=== PATIENT | female | born 1960 | race Caucasian/White ===

== ENCOUNTER 2017-06-29 21:19 | Emergency (ER) | payer BC, OTHER ==
[~2017-06-29] VITALS: Ht 175.3 cm; Wt 61.2 kg
--- NOTE | 2017-06-29 22:04 | ED EENT ---
History of Present Illness General Chief Complaint: Eye Problems Stated Complaint: RT EYE REDNESS/PAIN Nursing Triage Note: PT AMBULATED TO ROOM. PT STATES SHE WOKE UP THIS MORNING AND NOTICED WHAT SEEMS LIKE A PUSS POCKET IN HER RIGHT EYE. PT STATES SHE HAS BEEN HAVING PAIN AND HER VISION HAS BEEN A LITTLE CLOUDY OFF AND ON TODAY. PT PUT VISINE IN HER EYE TODAY AND STATES IT "BURNED LIKE HELL" WHEN THAT HAPPENED. Source: patient Exam Limitations: no limitations History of Present Illness Time seen by provider: 21:57 Initial Comments Patient presents to ER with chief complaint of just this morning waking up with redness in her eye and no foreign body sensation but she does feel irritation and pain. She has a pimple on the lateral side of her eyeball. She's had no significant discharge with just some mattering throughout the day. No seasonal allergies, injury, runny nose, ear pain, difficulty hearing, tinnitus, dizziness. Allergies and Home Medications Allergies Coded Allergies: Sulfa (Sulfonamide Antibiotics) (Verified Allergy, Unknown, 06/29/17) Review of Systems Constitutional: No chills, No diaphoresis, No fever, No malaise Eyes: Denies Blindness, Denies Blurred Vision, Drainage (scant amount of mattering) Ears: Denies Pain Throat: denies pain, denies swelling Respiratory: No cough, No short of breath Cardiovascular: No chest pain, No palpitations Musculoskeletal: No muscle stiffness, No neck pain Skin: No pruritus, No rash Neurological: Denies Headache, Denies Numbness, Denies Paresthesia Past Blloooo-Khwjvm-Thowaw Hx Patient Social History Alcohol Use: Denies Use Recreational Drug Use: No Smoking Status: Never a Smoker 2nd Hand Smoke Exposure: No Recent Foreign Travel: No Contact w/Someone Who Travel: No Recent Infectious Disease Expo: No Recent Hopitalizations: No Seasonal Allergies Seasonal Allergies: No Visual Acuity : Eye Location: Bilaterally Vision Acuity Degree: 20/15 Physical Exam Vital Signs Vital Sign - Last 12Hours 06/29/17 21:38 Temp 97.3 Pulse 81 Resp 20 B/P (MAP) 126/74 Pulse Ox 95 O2 Delivery Room Air General Appearance: WD/WN, no apparent distress Eyes: right eye other (conjunctiva and lateral sclera are erythematous with a small vesicle that under Wood's lamp examination does not have dendritic extensions.), left eye normal inspection, bilateral eye EOMI, bilateral eye PERRL Ears: bilateral ear TM normal, bilateral ear auricle normal, bilateral ear canal normal Nose: normal inspection, No active bleeding Mouth/Throat: normal mouth inspection, pharynx normal Neck: non-tender, supple Neurologic/Psychiatric: alert, oriented x 3 Skin: normal color, warm/dry Progress/Results/Core Measures Results/Orders Vital Signs/I&O Vital Sign - Last 12Hours 06/29/17 21:38 Temp 97.3 Pulse 81 Resp 20 B/P (MAP) 126/74 Pulse Ox 95 O2 Delivery Room Air Blood Pressure Mean: 91 Progress Note : Time: 22:17 Progress Note Under Wood's lamp examination it does not look like zoster. Appears to be a typical viral conjunctivitis. Departure Impression Impression: Primary Impression: Conjunctivitis Qualified Codes: B30.9 - Viral conjunctivitis, unspecified Disposition: 01 HOME, SELF-CARE Condition: Stable Departure-Patient Inst. Decision time for Depature: 22:18 Referrals: RHINA FLORES MD (PCP/Family) Primary Care Physician Patient Instructions: Conjunctivitis (Pinkeye) (DC) Add. Discharge Instructions: Red several times a day with a contact solution or normal saline eye solution. Apply hot compresses over the eye as many times as necessary to control the pain and swelling. Tylenol Motrin are reasonable choices. If it is not getting better in 5-7 days or starts getting worse or having more mattering then you should chicken picker the antibiotic ointment. Apply 1 cm ribbon to the lower eyelid of the right eye 4 times a day for 10 days or at least 2-3 days after resolution of symptoms. If you have new or worsening symptoms he should return to the ER or your teacher learning disabled or your primary doctor for further evaluation. If you're having itching sensation you can chicken picker a solution with Naphcon and use instead of the eyes saline rinse. All discharge instructions reviewed with patient and/or family. Voiced understanding. Scripts Erythromycin Base (Erythromycin Opthalmic Ointment) 1 Gm Oint...g. 1 CM OP Q6H for 10 Days, #1 TUBE 0 Refills 1/2 inch Prov: JESUS LAKE 06/29/17 Copy Copies To 1: RHINA FLORES MD, TITUS J Jun 29, 2017 22:04
[2017-06-29] MEDS ORDERED: BSS 15 ML IR ONE (22:15)
[2017-06-29] MEDS ORDERED: TETRACAINE 0.5% OPHTH SOLN 4 ML BTL (SINGLE DOSE ONLY) OP ONE (22:15)
[2017-06-29] MEDS ORDERED: FLUORESCEIN (FLUOR-I-STRIPS) 1 MG STRP OU ONE (22:15)
[2017-06-29] MEDS ORDERED: ERYT1OIN6 OP (22:23)
[2017-06-29 22:32] VITALS: BP 126/74
== END 2017-06-29 22:32 | disposition home or self-care (01) ==
LOC: ER 21:21
DX: H10.9 Unspecified conjunctivitis (principal)
CPT/HCPCS: 99282

== ENCOUNTER 2022-04-13 11:17 | Emergency (ER) | payer BC ==
[~2022-04-13] VITALS: Ht 175 cm; Wt 61.0 kg
[~2022-04-13 11:17] MED LIST: ERYT1OIN6 OP
--- NOTE | 2022-04-13 11:35 | ED Upper Extremity ---
General Chief Complaint: Upper Extremity Stated Complaint: R PINK FINGER LAC / INJ Source: patient Exam Limitations: no limitations History of Present Illness Date Seen by Provider: April 13, 2022 Time Seen by Provider: 11:33 Initial Comments Patient is a 61-year-old female presents ED with injury to her right little finger. This occurred about 30 minutes ago. She states she got her right little finger caught in between a cast iron pot and a fence. This resulted in a laceration on the palmar side. No nail involvement but does have adequate range of motion. Bleeding controlled direct pressure. Near skin avulsion on the pad side of the right little finger. Not up-to-date on tetanus. She has some mild pain and discomfort with numbness and tingling Allergies and Home Medications Allergies Coded Allergies: Sulfa (Sulfonamide Antibiotics) (Verified Allergy, Unknown, 06/29/17) Patient Home Medication List Home Medication List Reviewed: Yes Cephalexin (Cephalexin) 500 Mg Tablet, 500 MG PO QID Prescribed by: GINGER MONTE on 04/13/22 1259 Erythromycin Base (Erythromycin Opthalmic Ointment) 1 Gm Oint...g., 1 CM OP Q6H Prescribed by: JESUS LAKE on 06/29/17 2223 Tramadol HCl (Tramadol HCl) 50 Mg Tablet, 50 MG PO Q4H PRN for PAIN-MILD (1-4) Prescribed by: GINGER MONTE on 04/13/22 1332 Review of Systems Constitutional: No chills, No diaphoresis EENTM: No blurred vision, No double vision, No dental problems, No mouth pain, No mouth swelling, No throat pain Respiratory: No cough, No dyspnea on exertion Cardiovascular: No chest pain Gastrointestinal: No abdominal pain, No diarrhea, No nausea, No vomiting Musculoskeletal: joint pain, joint swelling, muscle pain Skin: change in color, other (Laceration) All Other Systems Reviewed Negative Unless Noted: Yes Past Bwvgcea-Vndpvl-Kmgwle Hx Seasonal Allergies Seasonal Allergies: No Past Medical History Surgeries: No Respiratory: No Cardiac: No Neurological: No Genitourinary: No Gastrointestinal: No Musculoskeletal: No Endocrine: No HEENT: No Cancer: No Psychosocial: No Integumentary: No Blood Disorders: No Physical Exam Vital Signs Vital Signs - First Documented 04/13/22 11:33 Temp 36.0 Pulse 86 Resp 20 B/P (MAP) 115/78 (90) Pulse Ox 95 O2 Delivery Room Air Capillary Refill : Height, Weight, BMI Height: 5'9.00" Weight: 135lbs. oz. 61.467626dm; BMI Method:Stated General Appearance: WD/WN, no apparent distress HEENT: PERRL/EOMI, normal ENT inspection, TMs normal, pharynx normal Neck: non-tender, full range of motion, supple Cardiovascular: regular rate, rhythm, no edema, no gallop, no JVD Respiratory: chest non-tender, lungs clear, normal breath sounds, no respiratory distress, no accessory muscle use Gastrointestinal: normal bowel sounds, non tender, soft, no organomegaly Back: normal inspection, no CVA tenderness, no vertebral tenderness Hand: laceration (Laceration with near skin avulsion to the palmar side of the right little finger. Normal active range of motion. No nail involvement.) Neurologic/Tendon: normal sensation, normal motor functions, normal tendon functions Neurologic/Psychiatric: weed controller II-XII nml as tested, no motor/sensory deficits, alert, normal mood/affect, oriented x 3 Skin: other (Circular laceration to the palmar side of the right little finger) Procedures/Interventions Wound Location: Upper Extremities Other Wound Location right little finger Wound Length (cm): 3 Wound's Depth, Shape: superficial, sub Q Wound Explored: clean Irrigated w/ Saline (ccs): 400 Betadine Prep?: Yes Anesthesia: 1% Lidocaine Volume Anesthetic (ccs): 5 Wound Debrided: minimal Suture: Ethlion Suture Size: 5-0 Number of Sutures: 15 Layer Closure?: 1 Sterile Dressing Applied?: Yes Progress/Results/Core Measures Results/Orders My Orders Orders - REGINALDO ARCE Hand, Right, 3 Views (04/13/22 11:32) Dipht,Pertuss(Acell),Tet Adult (Boostrix (04/13/22 11:45) Medications Given in ED Current Medications Medications Dose Ordered Sig/Nayeli Route Start Time Stop Time Status Last Admin Dose Admin Diphtheria/ Tetanus/Acell Pertussis 0.5 ml ONCE ONCE IM 04/13/22 11:45 04/13/22 11:46 DC 04/13/22 12:10 0.5 ML Vital Signs/I&O 04/13/22 04/13/22 11:33 13:38 Temp 36.0 36.0 Pulse 86 80 Resp 20 20 B/P (MAP) 115/78 (90) 115/78 Pulse Ox 95 96 O2 Delivery Room Air Room Air Departure Communication (PCP) Patient has extensive laceration to her right little finger on the palmar side. Circular skin avulsion. Difficulty approximating secondary to partial skin removed secondary to the injury. X-ray was negative for fracture. Had to do m inimal cuts to the adipose tissue to help approximate that skin. Applied loosely at certain areas to help area heal correctly and prevent wound dehiscence. Extensive irrigation here in the ED. Normal active range of motion. Patient was given a tetanus shot. Will discharge with Keflex secondary to the injury and extent of tissue involvement. Will discharge with pain medication. Recommend orthopedic follow-up in 4 to 5 days for reevaluation. Remove sutures in 10 days. Provided hand surgeon follow-up for any type of reconstruction that may be needed. Provided splint. Return precaution were discussed Impression Primary Impression: Finger laceration Disposition: HOME, SELF-CARE Condition: Stable Departure-Patient Inst. Decision time for Depature: 12:58 Referrals: CHARLY WALSH,LOCAL PHYSICIAN (PCP) Primary Care Physician Patient Instructions: Laceration Repair With Stitches ED Add. Discharge Instructions: Remove sutures in 10 days. Keep the area covered. Topical Neosporin twice a day. Keep the finger in splint All discharge instructions reviewed with patient and/or family. Voiced understanding. Scripts Tramadol HCl (Tramadol HCl) 50 Mg Tablet 50 MG PO Q4H PRN for PAIN-MILD (1-4), #12 TAB Prov: REGINALDO ARCE 04/13/22 Cephalexin (Cephalexin) 500 Mg Tablet 500 MG PO QID for 7 Days, #28 TAB Prov: REGINALDO ARCE 04/13/22 REGINALDO ARCE April 13, 2022 11:35
[2022-04-13] MEDS ORDERED: TETANUS,DIPTH,PERTUSS P/F (BOOSTRIX) 0.5 ML VIAL IM ONE (11:45)
--- NOTE | 2022-04-13 12:07 | Diagnostic Imaging Report ---
CLINICAL INDICATION: Patient crushed right pinky in between two cast-iron planters. EXAM: X-ray of the right hand, 2 views. COMPARISON: None. FINDINGS AND IMPRESSION: 1: There is soft tissue avulsion injury involving the soft tissues adjacent to the 5th distal phalanx. There is no fracture or dislocation seen. 2: The remainder of the right hand shows no fracture. Dictated by: Dictated on workstation # [id number]
[2022-04-13] MEDS ORDERED: CEPH500T PO (12:59)
[2022-04-13] MEDS ORDERED: ACHD5005 PO (13:23)
[2022-04-13] MEDS ORDERED: TRM50T PO (13:32)
[2022-04-13 13:38] VITALS: BP 115/78
== END 2022-04-13 13:38 | disposition home or self-care (01) ==
LOC: EDUNIT# 11:17 → ER 11:19
DX: S61.216A Laceration without foreign body of right little finger without damage to nail, initial encounter (principal); Z23 Encounter for immunization; W23.1XXA Caught, crushed, jammed, or pinched between stationary objects, initial encounter
CPT/HCPCS: 12002; 64450; 73130; 90715

== ENCOUNTER 2022-04-23 09:19 | Emergency (ER) | payer BC ==
[~2022-04-23] VITALS: Ht 175 cm; Wt 61.0 kg
[~2022-04-23 09:19] MED LIST changes: +ACHD5005 PO; +CEPH500T PO; +TRM50T PO
[2022-04-23 09:22] VITALS: BP 112/76
--- NOTE | 2022-04-23 09:54 | ED Upper Extremity ---
General Stated Complaint: SUTURE REMOVAL - R PINKY Source: patient Exam Limitations: no limitations History of Present Illness Date Seen by Provider: Apr 23, 2022 Time Seen by Provider: 09:29 Initial Comments Here for wound recheck and suture removal. She has some devitalized tissue along the index finger on the right hand, radial side. No fevers chills or pus. Allergies and Home Medications Allergies Coded Allergies: Sulfa (Sulfonamide Antibiotics) (Verified Allergy, Unknown, 06/29/17) Patient Home Medication List Home Medication List Reviewed: Yes Cephalexin (Cephalexin) 500 Mg Tablet, 500 MG PO QID Prescribed by: GINGER MONTE on 04/13/22 1259 Erythromycin Base (Erythromycin Opthalmic Ointment) 1 Gm Oint...g., 1 CM OP Q6H Prescribed by: JESUS LAKE on 06/29/17 2223 Tramadol HCl (Tramadol HCl) 50 Mg Tablet, 50 MG PO Q4H PRN for PAIN-MILD (1-4) Prescribed by: GINGER MONTE on 04/13/22 1332 Review of Systems Constitutional: No chills, No diaphoresis EENTM: No ear discharge, No ear pain Respiratory: No cough, No short of breath All Other Systems Reviewed Negative Unless Noted: Yes Past Fjwzvvm-Uuohmx-Lfprfm Hx Patient Social History Tobacco Use?: No Seasonal Allergies Seasonal Allergies: No Past Medical History Surgeries: No Respiratory: No Cardiac: No Neurological: No Genitourinary: No Gastrointestinal: No Musculoskeletal: No Endocrine: No HEENT: No Cancer: No Psychosocial: No Integumentary: No Blood Disorders: No Physical Exam Vital Signs Capillary Refill : Height, Weight, BMI Height: 5'9.00" Weight: 135lbs. oz. 61.076824sj; 19.00 BMI Method:Stated General Appearance: WD/WN, no apparent distress Hand: normal ROM, Right (Second digit distal phalanx has little discoloration and some crusty sutures in place. No erythema induration or spreading. Full range of motion.) Neurologic/Tendon: other (Decrease sensation over the skin flap on the palmar side of the second digit right hand distal phalanx) Procedures/Interventions Suture Size: 5-0 Progress/Results/Core Measures Progress Progress Note : Time: 09:53 Progress Note No charge wound check. There is no signs of infection however we will put her on some antibiotics for prevention as she does have some evidence of devitalization. Return precautions. We encouraged her to come back Thursday for recheck but [place]. She does have a PCP she can f ollow-up with as well. Departure Impression Primary Impression: Encounter for re-check of laceration wound Disposition: HOME, SELF-CARE Condition: Stable Departure-Patient Inst. Decision time for Depature: 09:54 Referrals: NO,LOCAL PHYSICIAN (PCP) Primary Care Physician CAMI HORTA MD Patient Instructions: SUTURE REMOVAL-UNCOMPLICATED Add. Discharge Instructions: Keflex 4 times a day for 7 days to prevent infection. If you see increasing redness going up your finger or hand, increasing pain, fever or intractable nausea then return to the ER or your primary care doctor for reevaluation. If you are having difficulty healing the wound you may contact wound care, Dr. Horta for help. Copy Copies To 1: CAMI HORTA MD, TITUS J Apr 23, 2022 09:54
== END 2022-04-23 10:05 | disposition home or self-care (01) ==
LOC: EDUNIT# 09:19 → ER 09:20
DX: Z48.02 Encounter for removal of sutures (principal)